=== PATIENT | female | born 1995 | race American Indian/Alaskan Native ===

== ENCOUNTER 2019-03-05 19:02 | Emergency (ER) | payer OTHER ==
[2019-03-05 19:11] VITALS: BP 119/80; PULSE 69; RESP 16; TEMP 98.2; O2SAT 97
[2019-03-05] MEDS ORDERED: cefTRIAXone (Rocephin) 250 mg Inj IM STA ×2 (20:00)
[2019-03-05 20:01] LABS: SQUAMOUS EPITHIAL 1 /hpf (0-5); URINE BILIRUBIN NEGATIVE (NEGATIVE); URINE BLOOD 3+ (NEGATIVE); URINE CLARITY Clear (Clear); URINE COLOR Yellow (YELLOW); URINE GLUCOSE (UA) NORMAL (Normal); URINE LEUKOCYTE ESTERASE NEG Leu/uL (Negative); URINE PROTEIN NEGATIVE (NEGATIVE)
--- NOTE | 2019-03-05 20:48 | C.PDOC ---
History Of Present Illness 23 year old female presents with vaginal discharge with malodorous odor for the past 2 days. Patient's partner was diagnosed with chlamydia in the past and was treated but was noncompliant with treatment, patient believes he might have infected her. Patient is currently menstruating as of earlier today. Denies abdominal pain, dysuria, or fever. Time Seen by Provider: 03/05/19 19:21 Chief Complaint (Nursing): Female Genitourinary History Per: Patient History/Exam Limitations: no limitations Onset/Duration Of Symptoms: Days (2) Current Symptoms Are (Timing): Still Present Quality Of Discomfort: Unable To Describe Associated Symptoms: Other (vaginal discharge) Recent travel outside of the [place]: No Abnormal Vaginal Bleeding: No Past Medical History Reviewed: Historical Data, Nursing Documentation, Vital Signs Vital Signs: Last Vital Signs Temp 98.2 F 03/05/19 19:09 Pulse 69 03/05/19 19:09 Resp 16 03/05/19 19:09 BP 119/80 03/05/19 19:09 Pulse Ox 97 03/05/19 19:09 Family History: States: Unknown Family Hx - Social History Hx Tobacco Use: No Hx Alcohol Use: No Hx Substance Use: No - Immunization History Hx Influenza Vaccination: No Review Of Systems Constitutional: Negative for: Fever, Chills Gastrointestinal: Negative for: Abdominal Pain Genitourinary: Positive for: Vaginal Discharge. Negative for: Dysuria Skin: Negative for: Rash Physical Exam - Physical Exam Appears: Non-toxic Skin: Normal Color, Warm, Dry Head: Atraumatic, Normacephalic Eye(s): bilateral: Normal Inspection Gastrointestinal/Abdominal: Soft, No Tenderness Back: No CVA Tenderness Pelvic: Other (Deferred) Neurological/Psych: Oriented x3, Normal Speech ED Course And Treatment - Laboratory Results Lab Results: Urine Color Yellow (YELLOW) 03/05/19 19:50 Urine Clarity Clear (Clear) 03/05/19 19:50 Urine pH 6.0 (5.0-8.0) 03/05/19 19:50 Ur Specific Agar 1.028 (1.003-1.030) 03/05/19 19:50 Urine Protein Negative mg/dL (NEGATIVE) 03/05/19 19:50 Urine Glucose (UA) Normal mg/dL (Normal) 03/05/19 19:50 Urine Ketones Negative mg/dL (NEGATIVE) 03/05/19 19:50 Urine Blood 3+ (NEGATIVE) H 03/05/19 19:50 Urine Nitrate Negative (NEGATIVE) 03/05/19 19:50 Urine Bilirubin Negative (NEGATIVE) 03/05/19 19:50 Urine Urobilinogen 2.0 mg/dL (0.2-1.0) H 03/05/19 19:50 Ur Leukocyte Esterase Neg Stu/uL (Negative) 03/05/19 19:50 Urine WBC (Auto) 1 /hpf (0-5) 03/05/19 19:50 Urine RBC (Auto) 250 /hpf (0-3) H 03/05/19 19:50 Ur Squamous Epith Cells 1 /hpf (0-5) 03/05/19 19:50 Urine HCG, Qual Negative (NEGATIVE) 03/05/19 19:31 Urine HCG, Qual Negative (NEGATIVE) 03/05/19 19:31 O2 Sat by Pulse Oximetry: 97 (room air) Pulse Ox Interpretation: Normal Progress Note: GC/Chlamydia sent. Patient treated prophylactically with zithromax, rocephin, and flagyl, advised to practice safe sex and follow up with OBGYN for further evaluation. Disposition Counseled Patient/Family Regarding: Diagnosis, Need For Followup, Rx Given - Disposition Referrals: [facility] [Outside] Disposition: HOME/ ROUTINE Disposition Time: 20:46 Condition: STABLE Additional Instructions: Please follow up with OB Gyne Practice safe sex always Return to ER if any concerns Prescriptions: metroNIDAZOLE [Flagyl] 500 mg PO BID #14 tab Instructions: Screening for Sexually Transmitted Infections Forms: [employer] (Faroese) - Clinical Impression Clinical Impression: Vaginosis, Encounter for assessment of STD exposure - 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 - Scribe Statement The provider has reviewed the documentation as recorded by the Jackibzelalem Bethea All medical record entries made by the Jackibzelalem were at my direction and personally dictated by me. I have reviewed the chart and agree that the record accurately reflects my personal performance of the history, physical exam, medical decision making, and the department course for this patient. I have also personally directed, reviewed, and agree with the discharge instructions and disposition.
== END 2019-03-05 20:54 | disposition home or self-care (01) ==
LOC: C.ER 19:02
DX: N76.0 Acute vaginitis (principal); Z20.2 Contact with and (suspected) exposure to infections with a predominantly sexual mode of transmission
CPT/HCPCS: 81001; 81025; 84703; 96372; 99284; J0696